=== PATIENT | female | born 1945 | race Caucasian/White ===

== ENCOUNTER 2024-05-26 10:39 | Emergency (ER) | payer MEDICARE, SELFPAY ==
[2024-05-26] VITALS (10 sets, daily range): BP systolic 124–150; BP diastolic 52–76
[2024-05-26 11:11] LABS: % Basophils 0.8 % (0-2); % Immature Granulocytes 0.1 % (0-0.5); % Lymphocytes 29.4 % (20.5-51.1); % Monocytes 5.1 % (1.7-9.3); % Neutrophils 63.6 % (42.2-75.2); Absolute Basophils 0.1 10^3/uL (0-0.2); Absolute Eosinophils 0.1 10^3/uL (0-0.7); Absolute Lymphocytes 2.2 10^3/uL (1.2-3.4); Absolute Monocytes 0.4 10^3/uL (0.1-0.6); Absolute Neutrophils 4.9 10^3/uL (1.4-6.5); Hematocrit 44.3 % (37.0-47.0); Hemoglobin 15.6 g/dL (12.0-16.0); Mean Corp Hgb Conc. 35.2 g/dL (33.0-37.0); Mean Corpuscular Hgb 32.4 pg (27.0-31.0); Mean Corpuscular Volume 91.9 fL (81.0-99.0); Nucleated Red Blood Cells % 0 %; Platelet Count 150 10^3/uL (130-400); Red Blood Cell Count 4.82 10^6/uL (4.20-5.40); Red Cell Dist. Width 12.9 % (11.5-14.5); White Blood Cell Count 7.6 10^3/uL (4.8-10.8)
[2024-05-26 11:34] LABS: ALT (SGPT) 81 U/L (0-35); AST (SGOT) 88 U/L (14-36); Albumin 4.5 g/dl (3.5-5.0); Alkaline Phosphatase 125 U/L (38-126); Blood Urea Nitrogen 15 mg/dl (7-17); Calcium 10.1 mg/dl (8.4-10.2); Carbon Dioxide 25 mmol/L (22-30); Chloride 104 mmol/L (98-107); Glucose 156 mg/dl (70-99); Potassium 4.1 mmol/L (3.5-5.1); Sodium 138 mmol/L (135-145); Total Bilirubin 0.7 mg/dl (0.2-1.3); Total Protein 7.6 g/dl (6.3-8.2); eGFR > 60.00
[2024-05-26 12:05] LABS: TSH Reflex To Free T4 2.43 uIU/ml (0.47-4.68)
--- NOTE | 2024-05-26 12:39 | ED.GENMED ---
History of Present Illness
General
Chief Complaint: Dizziness
Time Seen by Provider: 05/26/24 12:06
History of Present Illness
History of Present Illness:
78-year-old female with history of bpe-hvmhlhe-[id number] diabetes and hypothyroidism presents to the emergency department For evaluation of fatigue and exertional redness/disequilibrium beginning last night and worsening this morning. She has been
able to ambulate without falling but feels generally unsteady. She denies any symptoms at rest or previous to feel lightheaded whenever she is upright. Denies any chest pain or shortness of breath. No vision changes, neck pain. Beginning new
medications. Noted to be bradycardic in triage, not on beta-blockers
Review of Systems
Review of Systems
Allergies reviewed?: Yes
All Other Systems: ROS reviewed and negative except as documented in HPI and ROS
Phy Exam
Physical Exam
Physical Exam:
GEN: Well appearing, NAD, WDWN
Eyes: PERRLA, EOMs intact, no scleral icterus
HENT: NCAT, oral mucosa moist, no JVD, no cervical adenopathy.
Lungs: CTAB, no wheezes, rales, rhonchi, normal chest wall excursion
Cardiac: Bradycardic, regular, no murmur
Abdomen: S, NT, ND, NABS, no masses or hepatosplenomegaly
Neuro: AO x 3, no focal deficits to BUE/BLE, normal sensation throughout
MSK: No gross deformity or ecchymosis. No edema. No digital clubbing
Skin: No rashes, petechiae. Normal color, no pallor or jaundice.
Psych: Calm, cooperative, proper hygiene
Course
Orders/Labs/Results
Orders:
Orders
05/26/24 10:48
EKG [Electrocardiogram (*1)] Urgent
Reason for Study: Vertigo / Dizzy
EKG- Treatment ONCE
05/26/24 11:04
CMP [Comprehensive Metabolic Panel] Urgent
Complete Blood Count/With Diff Urgent
TSH Reflex To Free T4 Urgent
05/26/24 12:38
CT Head W/o Iv Contrast Urgent
Comment:
Reason For Exam: dizziness
05/26/24 15:15
Pt Eval And Treat Urgent
Treatment: vestibular
Activity Level: As Tolerated
Abnormal Lab Results
05/26/24
11:04
MCH 32.4 H pg
(27.0-31.0)
Glucose 156 H mg/dl
(70-99)
AST 88 H U/L
(14-36)
ALT 81 H U/L
(0-35)
05/26/24 11:04
05/26/24 11:04
Vital Signs
Initial and Last Documented VS:
Initial Vital Signs
Temp Pulse Resp BP Pulse Ox
97.7 F 49 18 150/76 98
05/26/24 10:55 05/26/24 10:55 05/26/24 10:55 05/26/24 10:55 05/26/24 10:55
Last Documented Vital Signs
Temp Pulse Resp BP Pulse Ox
97.7 F 42 17 129/52 94
05/26/24 10:55 05/26/24 16:45 05/26/24 16:45 05/26/24 16:00 05/26/24 14:54
MDM/Problems Addressed
MDM/Problems Addressed:
Patient has no visible nystagmus and I am unable to provoke any dizziness on my exam. She is certainly not ataxic with gait. Head CT and labs are unrevealing. Physical therapy was consulted for vestibular manipulation however this was again
unrevealing. Ultimately the only abnormality I can identify that would potentially be causing her dizziness is her severe bradycardia although there is no evidence for heart block or sinus pauses. I discussed this with Kay and the patient will
be directed to outpatient follow-up as there is no concern for high-grade heart block or recurrent syncope at this time.
*Critical Care Note
Total Time (30-74mins, 75-104mins- exclusive of procedures): Not Applicable
ED Attending Note
-
Portions of this chart may have been created with voice recognition software.� Occasional wrong word or��sound alike� substitutions may have occurred due to the inherent limitations of voice recognition software.
Discharge Plan
Departure
Patient Disposition: Home (Routine Discharge)
Date of Disposition: 05/26/24
Time of Disposition: 16:22
Patient with high blood pressure during this ER visit?: No
Discharge Problem:
Bradycardia, Dizziness
Instructions: Bradycardia
Referrals:
Dwight White MD [Active] - Call in 1-3 days for appt
Activity Restrictions/Additional Instructions:
Return if symptoms worsen or your develop fainting episodes
Interventions
Interventions:
*General Assessment Last Done: 05/26/24 10:55
ED- Fall Risk Assessment Last Done: 05/26/24 12:00
*ED COVID-19 Vaccine History Last Done: 05/26/24 10:55
*Nursing Disposition Last Done: 05/26/24 17:09
ED- Neurological Assessment Last Done: 05/26/24 12:00
ED- Cardiac Assessment Last Done: 05/26/24 12:00
ED Swallowing Screen Last Done: 05/26/24 12:00
Discharge Date and Time
Discharge Date/Time: 05/26/24 17:10
Print Language: ESTONIAN
== END 2024-05-26 17:10 | disposition home or self-care (01) ==
LOC: EMR 10:39
PROVIDERS: Emergency Medicine; EMERGENCY PHYSICIAN Emergency Medicine
DX: R42 Dizziness and giddiness (principal); R00.1 Bradycardia, unspecified; R53.83 Other fatigue; E11.9 Type 2 diabetes mellitus without complications; E03.9 Hypothyroidism, unspecified
CPT/HCPCS: 99284; 70450; 80053; 84443; 85025; 93005

== ENCOUNTER → 2024-05-29 12:46 | Outpatient (REF) | payer MEDICARE, SELFPAY | LOC: RCS 12:46 | PROVIDERS: ATTENDING PHYSICIAN Student in an Organized Health Care Education/Training Program | DX: R00.1 Bradycardia, unspecified (principal) | CPT/HCPCS: 93306 ==